=== PATIENT | male | born 2000 | race Hispanic/Latino ===

== ENCOUNTER 2020-02-29 21:16 | Emergency (ER) | payer MEDICAID, OTHER ==
[2020-02-29] MEDS ORDERED: Lidocaine Viscous Sol 2% 15 ml UD Cup ONE (23:09)
== END 2020-02-29 22:06 | disposition home or self-care (01) ==
LOC: MADERS 21:16
DX: T16.1XXA Foreign body in right ear, initial encounter (principal)
CPT/HCPCS: 99282